=== PATIENT | female | born 1985 | race Two or more races ===

== ENCOUNTER 2018-06-29 12:19 | Emergency (ER) | payer OTHER ==
[2018-06-29 12:22] VITALS: TEMP 98.3; BMI 29.0
[2018-06-29] MEDS ORDERED: SODIUM CHLORIDE 1,000 ML IV STA (14:10)
--- NOTE | 2018-06-29 14:14 | PDOC ---
History of Present Illness - General Chief Complaint: Vaginal Bleeding Stated Complaint: VAGINAL BLEEDING/7 WKS Time Seen by Provider: 06/29/18 14:12 - History of Present Illness Initial Comments: The patient is a 32F at 7wks by w/ no reported PMH who presents w/ 1 day of vaginal bleeding that the patient compares to a period. The patient states that she was seen at a clinic where she was told she was . The patient endorses concomitant passage of clot/some mass. The patient endorses BLQ cramping abdominal pain that radiates towards her back. She has not tried taking anything for the pain. She states that she has been taking vitamins. The patient denies having had this before with previous or this . The patient denies fevers, chills, FUNEZ, vision changes, chest pain, SOB, N/V/C/D, dysuria, hematuria, or blood in her stool. 06/29/18 14:18 Past History - Past Medical History Allergies/Adverse Reactions: Allergies Allergy/AdvReac Type Severity Reaction Status Date / Time No Known Allergies Allergy Verified 06/29/18 12:22 Home Medications: Ambulatory Orders Vitamins (Sjr) - 1 tab PO DAILY tablet 06/06/15 Cephalexin [Keflex] 500 mg PO BID #10 capsule 06/30/18 Ciprofloxacin [Cipro -] 500 mg PO Q12H #14 tablet 07/01/18 Asthma: No Cancer: No Cardiac Disorders: No COPD: No Diabetes: No HTN: No Seizures: No Thyroid Disease: No - Suicide/Smoking/Psychosocial Hx Smoking History: Never smoked Have you smoked in the past 12 months: No Hx Alcohol Use: No Drug/Substance Use Hx: No Substance Use Type: None Hx Substance Use Treatment: No Review of Systems - Review of Systems Able to Perform ROS?: Yes Comments:: GENERAL/CONSTITUTIONAL: No fever or chills. No weakness HEAD, EYES, EARS, NOSE AND THROAT: No change in vision. No ear pain or discharge. No sore throat CARDIOVASCULAR: No chest pain or shortness of breath RESPIRATORY: No cough, wheezing, or hemoptysis GASTROINTESTINAL: No nausea, vomiting, diarrhea or constipation GENITOURINARY: No dysuria, frequency, or change in urination MUSCULOSKELETAL: No joint or muscle swelling or pain. No neck or back pain SKIN: No rash NEUROLOGIC: No headache, vertigo, loss of consciousness, or change in strength/ sensation ENDOCRINE: No increased thirst. No abnormal weight change HEMATOLOGIC/LYMPHATIC: No anemia, easy bleeding, or history of blood clots ALLERGIC/IMMUNOLOGIC: No hives or skin allergy 06/29/18 15:28 *Physical Exam - Vital Signs Last Vital Signs Temp Pulse Resp BP Pulse Ox 98.3 F 96 H 18 126/76 100 06/29/18 12:20 06/29/18 12:20 06/29/18 12:20 06/29/18 12:20 06/29/18 12:20 - Physical Exam Comments: GENERAL: Awake, alert, and fully oriented, in no acute distress HEAD: No signs of trauma, normocephalic, atraumatic EYES: PERRLA, EOMI, sclera anicteric, conjunctiva clear ENT: Auricles normal inspection, hearing grossly normal, nares patent, oropharynx clear without exudates. Moist mucosa NECK: Normal ROM, supple, no lymphadenopathy LUNGS: No distress, speaks full sentences, clear to auscultation bilaterally HEART:Regular rate and rhythm, normal S1 and S2, no murmurs appreciated, peripheral pulses normal and equal bilaterally ABDOMEN: Soft, mild suprapubic TTP, normoactive bowel sounds. No guarding, no rebound EXTREMITIES : Normal inspection, Normal range of motion, no edema. No clubbing or cyanosis NEUROLOGICAL: Cranial nerves II through XII grossly intact. Normal speech, normal gait, no focal sensorimotor deficits SKIN: Warm, Dry, normal turgor, no rashes or lesions noted PELVIC: 06/29/18 14:26 ED Treatment Course - LABORATORY CBC & Chemistry Diagram: 06/29/18 14:25 06/29/18 14:25 Medical Decision Making - Medical Decision Making The patient is a 32F at 7wks by LMP who presents with 1 day of lower abdominal pain and vaginal bleeding concerning for spontaneous Ddx: spontaneous /inevitable , considered ectopic , UTI US with thickened endometrium w/o sonographic evidence of viable intrauterine gestation 06/29/18 15:40 Hematuria, no evidence of UTI No leukocytosis Discussed results of U/S w/ patient who verbalized understanding Patient will f/u with PCP this week Return precautions were also given Dispo: Home w/ PCP f/u 06/29/18 16:20 *DC/Admit/Observation/Transfer Diagnosis at time of Disposition: Inevitable - Discharge Dispostion Disposition: HOME Condition at time of disposition: Stable Decision to Admit order: No - Prescriptions Prescriptions: Cephalexin [Keflex] 500 mg PO BID #10 capsule Ciprofloxacin [Cipro -] 500 mg PO Q12H #14 tablet - Referrals Referrals: Angelika Daigle MD [Primary Care Provider] - - Patient Instructions Printed Discharge Instructions: DI for Miscarriage Additional Instructions: You were seen today in the Emergency Room for spontaneous . You were evaluated and found to not have evidence of intrauterine on ultrasound. You were also tested for gonorrhea and chlamydia and will be contacted if they are positive. Please follow up with your primary care physician within the next 1-3 days. Return to the Emergency Department if you develop fevers, have continued heavy bleeding, have continued or worsening abdominal pain, dizziness, worsening symptoms, or new concerning symptoms. - Post Discharge Activity
[2018-06-29 14:55] LABS: BASO % 0.7 % (0-2.0); EOS % 1.3 % (0-4.5); HEMATOCRIT 40.1 % (32.4-45.2); HEMOGLOBIN 13.7 GM/dL (10.7-15.3); LYMPH % 24.3 % (8-40); MCH 31.2 pg (25.7-33.7); MCHC 34.3 g/dl (32.0-36.0); MEAN CELL VOLUME 91.1 fl (80-96); MONO % 8.2 % (3.8-10.2); NEUT % 65.5 % (42.8-82.8); PLATELET COUNT 299 K/MM3 (134-434); RDW 12.8 % (11.6-15.6); WHITE BLOOD COUNT 8.6 K/mm3 (4.0-10.0)
[2018-06-29 15:02] LABS: URINE APPEARANCE SLCLOUDY; URINE BILIRUBIN NEGATIVE (<2.0 mg/dL); URINE COLOR YELLOW; URINE GLUCOSE (UA) NEGATIVE (NEGATIVE); URINE KETONE NEGATIVE (NEGATIVE); URINE LEUK ESTERASE NEGATIVE (NEGATIVE); URINE NITRITE NEGATIVE (NEGATIVE); URINE UROBILINOGEN NEGATIVE mg/dL (0.2-1.0)
[2018-06-29 15:07] LABS: URINE PROTEIN 1+ (NEGATIVE)
[2018-06-29 15:16] LABS: INR 0.98 (0.83-1.09); PROTHROMBIN TIME (PATIENT) 11.1 SEC (9.7-13.0)
[2018-06-29 15:20] LABS: ALBUMIN 3.8 g/dl (3.4-5.0); ANION GAP 5 MMOL/L (8-16); BILIRUBIN,TOTAL 0.2 mg/dL (0.2-1); BLOOD UREA NITROGEN 8 mg/dL (7-18); CALCIUM 9.1 mg/dL (8.5-10.1); CHLORIDE 106 mmol/L (98-107); CO2 29 mmol/L (21-32); CREATININE 0.5 mg/dL (0.55-1.3); GLUCOSE,RANDOM 91 mg/dL (74-106); POTASSIUM 3.7 mmol/L (3.5-5.1); SGOT/AST 28 U/L (15-37); SGPT/ALT 46 U/L (13-61); SODIUM 140 mmol/L (136-145)
[2018-06-29 15:23] LABS: ALK PHOS 92 U/L (45-117); TOT PROT 7.8 g/dl (6.4-8.2)
--- NOTE | 2018-06-29 15:59 | PDOC ---
Attending Attestation - Resident Resident Name: Axel Iraheta - ED Attending Attestation I have performed the following: I have examined & evaluated the patient, The case was reviewed & discussed with the resident, I agree w/resident's findings & plan - HPI HPI: 06/30/18 17:28 32F at 7wks by w/ no reported PMH who presents w/ 1 day of vaginal bleeding since last night, a/w lower abdominal cramping. LMP 05/09/18. home preg test positive. - Physicial Exam PE: 06/29/18 16:14 NAD, well appearing, MMM, nl conjunctiva, anicteric; neck supple. lungs clear, RRR, abdomen soft mild suprapubic tenderness. [place] x4, no focal neuro deficits. No peripheral edema. normal color for ethnicity, WWP. : normal external genitalia, no lesions, +copious blood in the vaginal vault, no CMT, no adnexal tenderness. Smooth and pink cervix. 06/30/18 17:28 - Medical Decision Making 06/29/18 16:15 32F at 7wks by w/ no reported PMH who presents w/ 1 day of vaginal bleeding since last night, a/w lower abdominal cramping. LMP 05/09/18. home preg test positive. vitals wnl. HD stable labs and lytes wnl. Rh positive, no rhogam needed TVUS with no IUP, low beta hcg level ~300s, so most c/w /miscarriage pain control, hydration and bleeding precautions. OB followup, reassurance and support provided at bedside. Pt informed of my clinical impression, treatment recommendations and disposition plan. All questions answered to patient's satisfaction and expressed understanding and comfort with this. Reasons for returning to the ED sooner discussed with the patient otherwise, follow up with primary care physician. At the time of discharge, the patient is alert, clinically improved, tolerating po and verbalizes understanding of instructions. 06/30/18 17:28
[2018-06-29 16:40] VITALS: BP 122/60; PULSE 80
== END 2018-06-29 17:05 | disposition home or self-care (01) ==
LOC: JER 12:19
PROC: 3E0337Z Introduction of Electrolytic and Water Balance Substance into Peripheral Vein, Percutaneous Approach (ICD-10-PCS; principal; 2018-06-29)
DX: O26.891 Other specified pregnancy related conditions, first trimester (principal); Z3A.01 Less than 8 weeks gestation of pregnancy; O03.9 Complete or unspecified spontaneous abortion without complication
CPT/HCPCS: 36415; 76817-TC; 80053; 81003; 81015; 84702; 85025; 85610; 86850; 86900; 86901; 87086; 87186; 87491; 87591; 96360; 99284-25; J7030

== ENCOUNTER 2019-03-31 07:55 | Inpatient (IN) | payer OTHER ==
[2019-03-31] MEDS ORDERED: PROMETHAZINE HCL 25 MG/1 ML VIAL IVPB ONE (08:36)
[2019-03-31] MEDS ORDERED: BUTORPHANOL TARTRATE 1 MG/ML VIAL IVPB ONE (08:36)
--- NOTE | 2019-03-31 08:41 | HP ---
Past Medical History - Admission Chief Complaint: IOL for GDMA2 History of Present Illness: 33yo @ 39wks by jennifer here for IOL GDMA2. No VB/LOF. No ctx. +FM Preg c/b AMA (nl testing), GDMA2- on glyburide 2.5mg qhs History Source: Patient Limitations to Obtaining History: No Limitations - Past Medical History NP: No: Alzheimer's, CVA, Dementia, Migraine, Multiple Sclerosis, Peripheral Neuropathy, Parkinson's, Seizure, Syncope, TIA, Vertigo, Other Hepatobiliary: No: Cirrhosis, Cholelithiasis, Cholecystitis, Choledocholithiasis , Hepatitis A, Hepatitis B, Hepatitis C, Other Renal/: No: Renal Failure, Renal Inusuff, BPH, Cancer, Hematuria, Hemodialysis , Neurogenic Bladder, Renal Calculi, UTI, Other Reproductive: No: Ectopic , Endometriosis, Fibroids, PID, Polycystic Ovary Syndrome, Postmenopausal, Other Heme/Onc: Yes: Anemia Infectious Disease: No: AIDS, C-Diff, Herpes Zoster, HIV, MRSA, STD's, Tuberculosis, VREF, Other Psych: No: Addictions, Anxiety, Bipolar, Depression, Panic, Psychosis, Schizophrenia, Other Musculoskeletal: No: Bursitis, Chronic low back pain, Hemiparesis, Hemiplegia, Osteoarthritis, Paraplegia, Other Rheumatology: No: Fibromyalgia, Gout, Lupus, Rheumatoid Arthritis, Sarcoidosis, Vasculitis, Other ENT: No: Allergic Rhinitis, Sinusitis, Other Endocrine: No: Pato's Disease, Napavine's Disease, Diabetes Insipidus, Diabetes Mellitus, Hyperparathyroidism, Hyperthyroidism, Hypothyroidism, Osteopenia, SIADH, Other Dermatology: No: Basal Cell, Cellulitis, Eczema, Melanoma, Psoriasis, Squamous Cell, Other - Past Surgical History Past Surgical History: Yes: None Hx Myomectomy: No Hx Transabdominal Cerclage: No - Smoking History Smoking history: Never smoked Have you smoked in the past 12 months: No - Alcohol/Substance Use Hx Alcohol Use: No History of Substance Use: reports: None - Social History Usual Living Arrangement: Yes: With Spouse ADL: Independent History of Recent Travel: No Home Medications - Allergies Allergies/Adverse Reactions: Allergies Allergy/AdvReac Type Severity Reaction Status Date / Time No Known Allergies Allergy Verified 03/27/19 15:41 - Home Medications Home Medications: Ambulatory Orders Vitamins (Sjr) - 1 tab PO DAILY tablet 08/27/15 Glyburide 2.5 mg PO HS 02/28/19 Review of Systems - Review of Systems Constitutional: denies: No Symptoms, Chills, Diaphoresis, Fever, Lethargy, Loss of Appetite, Malaise, Night Sweats, Unintentional Wgt. Loss, Weakness, Other Cardiovascular: denies: No Symptoms, Chest Pain, Edema, Palpitations, Shortness of Breath, Other Respiratory: denies: No Symptoms, Cough, Exercise Intolerance, Hemoptysis, Orthopnea, PND, Snoring, SOB, SOB on Exertion, Wheezing, Other Gastrointestinal: denies: No Symptoms, Abdominal Pain, Bloating, Constipation, Diarrhea, Dysphagia, Indigestion, Melena, Nausea, Rectal Bleeding, Vomiting, Vomiting Blood, Other Physical Exam - Maternity Constitutional: Yes: Well Nourished, No Distress, Calm Eyes: Yes: WNL, Conjunctiva Clear, EOM Intact HENT: Yes: WNL, Atraumatic, Normocephalic - Abdominal Exam/OB Number of Fetuses: Single Presentation: Vertex Contractions: Yes Regularity: Irregular Intensity: Mild Monitor Mode: External Category: I Accelerations: Non-Uniform Decelerations: None - Vaginal Exam/OB Vaginal Bleediing: No Speculum Exam: No Dilatation (cm): 3 Effacement (%): 20 Amniotic Membrane Status: Intact Presentation: Vertex/Position Station: -3 - Physical Exam Edema: No Assessment/Plan 33yo @ 39wks by sono here for IOL for GDMA2 Admit to L&D NPO, IVFs AROM/Pitocin IOL Epidural prn FS q4 hours Cat I tracing Anticipate LONNIE Byers MD
[2019-03-31] MEDS ORDERED: ELECTROLYTE-148 SOLN 1,000 ML IV SCH (08:45)
[2019-03-31] MEDS ORDERED: OXYTOCIN 30 UNITS in 0.9% NS 30 UNIT/500 ML INFUS.BAG IVPB SCH (08:45)
[2019-03-31 09:04] VITALS: BMI 31.6
[2019-03-31 10:01] LABS: BASO % 0.4 % (0-2.0); HEMATOCRIT 37.6 % (32.4-45.2); HEMOGLOBIN 12.8 GM/dL (10.7-15.3); LYMPH % 19.8 % (8-40); MCH 30.8 pg (25.7-33.7); MEAN CELL VOLUME 90.7 fl (80-96); MEAN PLT VOLUME 7.5 fl (7.5-11.1); MONO % 7.2 % (3.8-10.2); NEUT % 71.6 % (42.8-82.8); PLATELET COUNT 259 K/MM3 (134-434); RBC 4.14 M/mm3 (3.60-5.2); RDW 13.7 % (11.6-15.6); WHITE BLOOD COUNT 8.6 K/mm3 (4.0-10.0)
--- NOTE | 2019-03-31 10:07 | PN ---
Progress Note, Labor Vaginal Exam #1 Labor Exam Date: 03/31/19 Labor Exam Time: 10:04 Heart Rate (range): Cat I Dilatation: 3 Effacement (%): 25 Amniotic Membrane Status: Ruptured Presentation: Vertex/Position Station: -3 Remarks: Pt comfortable AROM, scant clears FS q4 hours, 108 on admission Anticipate LONNIE Byers MD
[2019-03-31 10:13] LABS: INR 0.91 (0.83-1.09); PROTHROMBIN TIME (PATIENT) 10.7 SEC (9.7-13.0)
[2019-03-31 10:16] LABS: ACTIVATED PTT 30.2 SECONDS (25.2-36.5)
[2019-03-31 10:22] LABS: BLOOD UREA NITROGEN 8.4 mg/dL (7-18); CALCIUM 8.8 mg/dL (8.5-10.1); CREATININE 0.6 mg/dL (0.55-1.3)
[2019-03-31] MEDS ORDERED: FENTANYL/BUPIVACAINE/NS/PF - PCEA - 50 ML DISP.SYRIN EP ONE (12:02)
[2019-03-31] MEDS ORDERED: LIDOCAINE HCL 1% PRESERVATIVE FREE - 30ML VIAL ONE (13:45)
[2019-03-31] MEDS ORDERED: OXYTOCIN 20 UNITS in 0.9% NS 20 UNIT/1,000 ML INFUS.BAG IV ONE (13:45)
--- NOTE | 2019-03-31 13:45 | PN ---
Progress Note, Labor Vaginal Exam #2 Labor Exam Date: 03/31/19 Labor Exam Time: 13:44 Heart Rate (range): Cat I Dilatation: 10 Effacement (%): 100 Amniotic Membrane Status: Ruptured Presentation: Vertex/Position Station: 0 Remarks: Pt called out, expressing pain and pressure Now C/C/0 Will start pushing Anticipate LONNIE Byers MD
[2019-03-31] MEDS ORDERED: BENZOCAINE 28 GM HEMORRHOIDAL OINTMENT TP PRN (14:19)
[2019-03-31] MEDS ORDERED: WITCH HAZEL 50% (TUCKS) 40 PAD/JAR PAD TP PRN (14:19)
[2019-03-31] MEDS ORDERED: BENZOCAINE 20% 57 GM BOTTLE TP PRN (14:19)
[2019-03-31] MEDS ORDERED: BISACODYL 10 MG SUPP.RECT RC PRN (14:19)
[2019-03-31] MEDS ORDERED: METHYLERGONOVINE MALEATE 0.2 MG/1 ML AMP IM PRN (14:19)
--- NOTE | 2019-03-31 14:19 | PN ---
Delivery - Delivery Vaginal Delivery: Spontaneous Type of Anesthesia: Epidural Episiotomy/Laceration: None EBL (cc): 200 Delivery, Single - Stages of Labor Placenta: Yes: Spontaneous - Condition of Director Of Digital Marketing/Flash Drier Operator Present: No Infant Gender: Female Position: Left, OA - 1 Minute Total Score: 9 5 Minutes Total Score: 9 - Feeding Plan Initial Plan: Exclusive throughout hospitalization Remarks - Remarks Remarks: of VFI from CARIN position over intact perineum. No nuchal. +Light meconium. Spontaneous delivery of anterior shoulder. Infant placed on maternal abdomen. Cord clamped and cut. Infant vigorous. Weight pending. Apgars 9/9. Spontaneous delivery of intact placenta with 3VC. Fundus firm. Perineum inspected, no lacerations. EBL 200. Mother and baby doing well. Zainab Byers MD
[2019-03-31] MEDS ORDERED: OXYTOCIN 20 UNITS in 0.9% NS 20 UNIT/1,000 ML INFUS.BAG IV SCH (14:30)
[2019-03-31] MEDS ORDERED: FENTANYL/BUPIVACAINE/NS/PF - PCEA - 50 ML DISP.SYRIN EP SCH (14:45)
[2019-03-31] MEDS ORDERED: NALOXONE HCL 0.4 MG/ML VIAL IVPUSH PRN (14:45)
[2019-03-31] MEDS: IBUPROFEN 600 MG TABLET (FP) PO PRN ×2 (17:37→22:11)
[2019-03-31] MEDS: ACETAMINOPHEN 325 MG TABLET (FP) PO PRN ×2 (17:38→22:11)
[2019-03-31] MEDS: FERROUS SO4 325 MG TABLET (FP) PO SCH (17:38)
[2019-04-01] MEDS: ACETAMINOPHEN 325 MG TABLET (FP) PO PRN ×2 (06:06→20:54)
[2019-04-01] MEDS: IBUPROFEN 600 MG TABLET (FP) PO PRN ×2 (06:06→20:54)
--- NOTE | 2019-04-01 06:52 | PN ---
Post Progress Note Post Day: 1 Type of Delivery: Vital Signs: Vital Signs Temperature 98.5 F 04/01/19 06:00 Pulse Rate 66 04/01/19 06:00 Respiratory Rate 18 04/01/19 06:00 Blood Pressure 120/78 04/01/19 06:00 O2 Sat by Pulse Oximetry (%) 100 03/31/19 13:45 Uterus: Yes: Fundus below umbilicus Abdomen/GI: Yes: Abdomen soft, Tolerating PO Lochia: Yes: Rubra Lochia, amount: Small Extremities: Yes: Calves non-tender Perineum: Yes: Intact Activity: Ambulating (Pain controlled. No fevers/chills. Breast/bottle feeding) - Labs Labs: CBC WBC 8.6 K/mm3 (4.0-10.0) 03/31/19 09:30 RBC 4.14 M/mm3 (3.60-5.2) 03/31/19 09:30 Hgb 12.8 GM/dL (10.7-15.3) 03/31/19 09:30 Hct 37.6 % (32.4-45.2) 03/31/19 09:30 MCV 90.7 fl (80-96) 03/31/19 09:30 MCH 30.8 pg (25.7-33.7) 03/31/19 09:30 MCHC 34.0 g/dl (32.0-36.0) 03/31/19 09:30 RDW 13.7 % (11.6-15.6) 03/31/19 09:30 Plt Count 259 K/MM3 (134-434) 03/31/19 09:30 MPV 7.5 fl (7.5-11.1) 03/31/19 09:30 Absolute Neuts (auto) 6.1 K/mm3 (1.5-8.0) 03/31/19 09:30 Neutrophils % 71.6 % (42.8-82.8) 03/31/19 09:30 Lymphocytes % 19.8 % (8-40) 03/31/19 09:30 Monocytes % 7.2 % (3.8-10.2) 03/31/19 09:30 Eosinophils % 1.0 % (0-4.5) 03/31/19 09:30 Basophils % 0.4 % (0-2.0) 03/31/19 09:30 Nucleated RBC % 0 % (0-0) 03/31/19 09:30 Assessment/Plan 33yo s/p , PPD#1 Routine PP care Labs pending Po pain control OOB, ambulate Anticipate d/c to home PPD#2 Zainab Byers MD
[2019-04-01] MEDS: FERROUS SO4 325 MG TABLET (FP) PO SCH ×3 (07:20→17:48)
[2019-04-01 08:40] LABS: BASO % 0.5 % (0-2.0); EOS % 1.4 % (0-4.5); HEMATOCRIT 33.9 % (32.4-45.2); HEMOGLOBIN 11.6 GM/dL (10.7-15.3); LYMPH % 23.4 % (8-40); MCH 30.9 pg (25.7-33.7); MCHC 34.3 g/dl (32.0-36.0); MEAN CELL VOLUME 90.1 fl (80-96); MEAN PLT VOLUME 7.3 fl (7.5-11.1); MONO % 4.8 % (3.8-10.2); NEUT % 69.9 % (42.8-82.8); PLATELET COUNT 245 K/MM3 (134-434); RBC 3.76 M/mm3 (3.60-5.2); RDW 13.7 % (11.6-15.6); WHITE BLOOD COUNT 10.2 K/mm3 (4.0-10.0)
[2019-04-01] MEDS: PRENATAL VITAMINS W/ FOLIC ACID TABLET (FP) PO SCH (09:23)
[2019-04-01] MEDS ORDERED: DIPHTH,PERTUSS(ACELL),TET 0.5 ML DISP.SYRIN IM ONE (10:00)
[2019-04-01] MEDS ORDERED: SENNOSIDES/DOCUSATE COMBO (SENNA PLUS) TABLET (UD) PO PRN (22:00)
[2019-04-02] MEDS: IBUPROFEN 600 MG TABLET (FP) PO PRN (07:40)
[2019-04-02] MEDS: ACETAMINOPHEN 325 MG TABLET (FP) PO PRN (07:40)
[2019-04-02] MEDS: FERROUS SO4 325 MG TABLET (FP) PO SCH (07:41)
[2019-04-02 08:05] VITALS: BP 127/89; PULSE 70; TEMP 97.9
--- NOTE | 2019-04-02 09:04 | DS ---
Physical Examination Vital Signs: Vital Signs Temperature 97.9 F 04/02/19 08:04 Pulse Rate 70 04/02/19 08:04 Respiratory Rate 18 04/02/19 08:04 Blood Pressure 127/89 04/02/19 08:04 O2 Sat by Pulse Oximetry (%) 100 03/31/19 13:45 Constitutional: Yes: Well Nourished, No Distress, Calm Eyes: Yes: WNL, Conjunctiva Clear, EOM Intact HENT: Yes: WNL, Atraumatic, Normocephalic Neck: Yes: WNL, Supple, Trachea Midline Cardiovascular: Yes: WNL, Regular Rate and Rhythm Respiratory: Yes: WNL, Regular, CTA Bilaterally Gastrointestinal: Yes: WNL, Normal Bowel Sounds Musculoskeletal: Yes: WNL Extremities: Yes: WNL Edema: No Integumentary: Yes: WNL Neurological: Yes: WNL, Alert, Oriented ...Motor Strength: WNL Psychiatric: Yes: WNL Labs: CBC, BMP 04/01/19 08:15 03/31/19 09:30 Discharge Summary Reason For Visit: CERVIDIL INDUCTION Procedures: Principal: Hospital Course: Patient presented for IOL for GDMA2 She had an uncomplicated She met all milestones She was discharged home on PPD#2 M. MD [place] Condition: Stable - Instructions Diet, Activity, Other Instructions: Regular Diet but limit carbohydrates Follow up in 4-6 weeks for your visit with Dr. Byers Referrals: Karol Byers MD [Staff Physician] - Disposition: HOME - Home Medications Comprehensive Discharge Medication List: Ambulatory Orders Vitamins (Sjr) - 1 tab PO DAILY tablet 06/06/15 Glyburide 2.5 mg PO HS 02/28/19 Ibuprofen 600 mg PO Q6H PRN #30 tablet 04/01/19
[2019-04-02] MEDS: PRENATAL VITAMINS W/ FOLIC ACID TABLET (FP) PO SCH (09:13)
== END 2019-04-02 09:55 | disposition home or self-care (01) | DRG 560 ==
LOC: JLDR 07:55 → J3W 15:57
PROVIDERS: ADMIT Obstetrics & Gynecology; ATTEND Obstetrics & Gynecology
PROC: 10E0XZZ Delivery of Products of Conception, External Approach (ICD-10-PCS; principal; 2019-03-31)
DX: O24.425 Gestational diabetes mellitus in childbirth, controlled by oral hypoglycemic drugs (principal); Z3A.39 39 weeks gestation of pregnancy; Z37.0 Single live birth
CPT/HCPCS: 36415; 59409; 80048; 82962; 85025; 85610; 85730; 86593; 86850; 86900; 86901; 90715